=== PATIENT | male | born 1960 | race Caucasian/White ===

== ENCOUNTER 2016-10-02 09:32 | Day surgery (SDC) | payer BC ==
[~2016-10-02] VITALS: Ht 177.8 cm; Wt 89.0 kg
[~2016-10-02 09:32] MED LIST: MULTIPLE VITAM1 EACH PO
[2016-10-02 09:57] VITALS: BP 144/88
[2016-10-02 10:53] LABS: ALKALINE PHOSPHATASE 48 IU/L (3-129); ANION GAP 7 MEQ/L (2-14); CHLORIDE 104 MEQ/L (99-109); GFR ESTIMATE (CALCULATED) > 59 mL/min/; GLUCOSE 98 mg/dL (70-99); SAMPLE HEMOLYSIS CHECK 0; SAMPLE ICTERIC CHECK 0; SAMPLE LIPEMIA CHECK 0; SODIUM 142 MEQ/L (136-147); TOTAL BILIRUBIN 0.8 MG/DL (0.0-1.0); UREA NITROGEN (BUN) 16 mg/dL (9-23)
[2016-10-02] MEDS ORDERED: NORCO 5/3251 TABLET PO (12:33)
[2016-10-02 13:17] VITALS: BP 125/83
[2016-10-02 14:33] VITALS: BP 136/87
[2016-10-02 16:08] VITALS: BP 125/73
[2016-10-02 17:03] VITALS: BP 145/79
== END 2016-10-02 17:13 | disposition home or self-care (01) ==
LOC: SDC 09:32
PROVIDERS: Physician Assistant
PROC: 0FT44ZZ Resection of Gallbladder, Percutaneous Endoscopic Approach (ICD-10-PCS; principal; 2016-10-02)
DX: K81.1 Chronic cholecystitis (principal); H93.19 Tinnitus, unspecified ear
CPT/HCPCS: 74300; 80053; 88304; J1100; J1170; J1885; J2250; J2405; J2710; J3010; S0020